=== PATIENT | female | born 1935 | race Caucasian/White ===

== ENCOUNTER 2019-06-05 12:01 | Inpatient (IN) ==
[2019-06-05] MEDS ORDERED: *HR* Heparin 5,000 UNIT/ML VIAL SQ SCH (18:00)
[2019-06-05] MEDS: Sennosides/Docusate Sodium TABLET PO SCH (19:30)
[2019-06-06] MEDS: *HR* OxyCODONE Immed Rel 5 MG TABLET PO PRN ×2 (01:34→10:27)
[2019-06-06 05:31] LABS: Basophils % 0.6 %; Eosinophils # 0.4 K/mcL (0.0-0.6); Eosinophils % 8.7 %; Hemoglobin 7.8 g/dL (11.5-15.4); Immature Granulocytes % 0.2 % (0-4); Lymphocytes # 1.9 K/mcL (0.6-4.6); Lymphocytes % 39.2 %; Mean Corpuscular HGB Conc 32.5 g/dL (31.6-35.5); Mean Corpuscular Hemoglobin 33.8 pg (28.0-33.3); Mean Corpuscular Volume 103.9 fL (83.0-100.0); Mean Platelet Volume 10.4 fL (9.4-12.4); Monocytes # 0.6 K/mcL (0.0-1.3); Neutrophils # 1.9 K/mcL (1.6-8.9); Platelet Count 108 K/mcL (140-400); Red Blood Count 2.31 M/mcL (3.82-4.97); Red Cell Distribution Width 14.6 % (11.5-14.5); Segmented Neutrophils % 39.3 %; White Blood Count 4.8 K/mcL (4.3-11.1)
[2019-06-06 05:48] LABS: Alanine Aminotransferase 8 Units/L (7-52); Albumin 2.7 g/dL (3.5-5.7); Albumin/Globulin Ratio 1.5 (1.1-2.2); Alkaline Phosphatase 75 Units/L (34-104); Aspartate Amino Transferase 12 Units/L (13-39); BUN/Creatinine Ratio 34 (6-26); Bilirubin,Total 0.3 mg/dL (0.3-1.0); Blood Urea Nitrogen 34 mg/dL (8-23); Calcium 8.5 mg/dL (8.6-10.3); Carbon Dioxide 24 mEq/L (23-29); Chloride 110 mEq/L (98-107); Globulin 1.8 g/dL (2.4-3.5); Glucose 98 mg/dL (70-105); Osmolality,Calculated 296 (280-300); Potassium 4.7 mEq/L (3.5-5.1); Sodium 139 mEq/L (136-145); Total Protein 4.5 g/dL (6.4-8.9); eGFR For African Americans > 60 (> 60); eGFR For Non-African Americans 53 (> 60)
[2019-06-06] MEDS: *HR* Heparin 5,000 UNIT/ML VIAL SQ SCH ×2 (06:25→17:13)
[2019-06-06] MEDS: Sennosides/Docusate Sodium TABLET PO SCH ×2 (08:53→21:26)
[2019-06-07] MEDS: *HR* OxyCODONE Immed Rel 5 MG TABLET PO PRN ×2 (00:43→21:55)
[2019-06-07] MEDS: *HR* Heparin 5,000 UNIT/ML VIAL SQ SCH ×2 (04:56→17:32)
[2019-06-07 05:23] LABS: Hematocrit 23.4 % (35.3-44.9); Hemoglobin 7.6 g/dL (11.5-15.4); Mean Corpuscular HGB Conc 32.5 g/dL (31.6-35.5); Mean Corpuscular Hemoglobin 33.6 pg (28.0-33.3); Mean Corpuscular Volume 103.5 fL (83.0-100.0); Platelet Count 125 K/mcL (140-400); Red Blood Count 2.26 M/mcL (3.82-4.97); Red Cell Distribution Width 14.5 % (11.5-14.5); White Blood Count 5.7 K/mcL (4.3-11.1)
[2019-06-07 08:16] LABS: % Iron Saturation 6 % (15-50); Iron 17 mcg/dL (50-170); Transferrin 191 mg/dL (203-362)
[2019-06-07] MEDS: Aspirin Enteric Coated 81 MG Tablet PO SCH (08:28)
[2019-06-07] MEDS: Sennosides/Docusate Sodium TABLET PO SCH (08:28)
[2019-06-07] MEDS ORDERED: Ergocalciferol (VIT D2) 50,000 UNIT (1.25MG) CAP PO SCH ×2 (09:00→12:15)
[2019-06-07 09:40] LABS: Prealbumin 11.4 mg/dL (17.0-34.0)
[2019-06-07] MEDS ORDERED: Sennosides/Docusate Sodium TABLET PO PRN (10:30)
[2019-06-07 22:40] LABS: Bilirubin,Urine Negative (Negative); Blood,Urine Negative (Negative); Clarity,Urine Slightly Cloudy (Clear); Glucose,Urine (UA) Normal (Normal); Ketones,Urine Negative (Negative); Leukocyte Esterase,Urine Small (Negative); Nitrite,Urine Negative (Negative); PH,Urine 6.5 pH Units (5.0-8.0); Protein,Urine Negative (Neg-Trace)
[2019-06-07 22:46] LABS: Color,Urine Yellow (Yellow)
[2019-06-07 22:47] LABS: Bacteria,Urine Few per hpf (None-Few); Squamous Epithelial Cell,Urine Few per lpf (None-Few)
[2019-06-08] MEDS: *HR* OxyCODONE Immed Rel 5 MG TABLET PO PRN ×2 (04:29→13:09)
[2019-06-08] MEDS: *HR* Heparin 5,000 UNIT/ML VIAL SQ SCH ×2 (04:31→17:17)
[2019-06-08] MEDS: Aspirin Enteric Coated 81 MG Tablet PO SCH (08:19)
[2019-06-08] MEDS: tiZANidine 4 MG TABLET PO PRN (09:46)
[2019-06-08] MEDS: Ascorbic Acid 500 MG TABLET PO SCH (17:16)
[2019-06-09 04:58] LABS: Hematocrit 24.4 % (35.3-44.9); Hemoglobin 7.9 g/dL (11.5-15.4); Mean Corpuscular HGB Conc 32.4 g/dL (31.6-35.5); Mean Corpuscular Hemoglobin 33.5 pg (28.0-33.3); Mean Corpuscular Volume 103.4 fL (83.0-100.0); Mean Platelet Volume 10.7 fL (9.4-12.4); Platelet Count 140 K/mcL (140-400); Red Blood Count 2.36 M/mcL (3.82-4.97); White Blood Count 4.3 K/mcL (4.3-11.1)
[2019-06-09 05:15] LABS: Calcium 8.8 mg/dL (8.6-10.3); Potassium 4.9 mEq/L (3.5-5.1)
[2019-06-09] MEDS: *HR* Heparin 5,000 UNIT/ML VIAL SQ SCH ×2 (06:23→17:25)
[2019-06-09] MEDS: Cyanocobalamin (B-12) 1,000 MCG TABLET PO SCH (09:20)
[2019-06-09] MEDS: Ascorbic Acid 500 MG TABLET PO SCH ×2 (09:20→17:25)
[2019-06-09] MEDS: Aspirin Enteric Coated 81 MG Tablet PO SCH (09:20)
[2019-06-09] MEDS: *HR* OxyCODONE Immed Rel 5 MG TABLET PO PRN (14:07)
[2019-06-10] MEDS: *HR* Heparin 5,000 UNIT/ML VIAL SQ SCH ×2 (05:41→17:12)
[2019-06-10] MEDS: *HR* OxyCODONE Immed Rel 5 MG TABLET PO PRN ×2 (08:29→22:08)
[2019-06-10] MEDS: Ascorbic Acid 500 MG TABLET PO SCH ×2 (08:29→17:14)
[2019-06-10] MEDS: Aspirin Enteric Coated 81 MG Tablet PO SCH (08:30)
[2019-06-10] MEDS: Cyanocobalamin (B-12) 1,000 MCG TABLET PO SCH (08:30)
[2019-06-11] MEDS: *HR* Heparin 5,000 UNIT/ML VIAL SQ SCH ×2 (06:40→17:18)
[2019-06-11] MEDS: Aspirin Enteric Coated 81 MG Tablet PO SCH (08:39)
[2019-06-11] MEDS: Ascorbic Acid 500 MG TABLET PO SCH ×2 (08:39→17:18)
[2019-06-11] MEDS: Cyanocobalamin (B-12) 1,000 MCG TABLET PO SCH (08:39)
[2019-06-11] MEDS: tiZANidine 4 MG TABLET PO PRN (11:53)
[2019-06-12] MEDS: tiZANidine 4 MG TABLET PO PRN ×2 (00:33→13:15)
[2019-06-12 05:05] LABS: Basophils % 0.6 %; Eosinophils # 0.3 K/mcL (0.0-0.6); Eosinophils % 5.2 %; Hematocrit 23.9 % (35.3-44.9); Hemoglobin 7.9 g/dL (11.5-15.4); Immature Granulocytes % 0.2 % (0-4); Lymphocytes % 37.6 %; Mean Corpuscular HGB Conc 33.1 g/dL (31.6-35.5); Mean Corpuscular Hemoglobin 34.5 pg (28.0-33.3); Mean Corpuscular Volume 104.4 fL (83.0-100.0); Monocytes # 0.6 K/mcL (0.0-1.3); Monocytes % 11.9 %; Neutrophils # 2.4 K/mcL (1.6-8.9); Platelet Count 147 K/mcL (140-400); Red Blood Count 2.29 M/mcL (3.82-4.97); Red Cell Distribution Width 15.3 % (11.5-14.5); Segmented Neutrophils % 44.5 %; White Blood Count 5.4 K/mcL (4.3-11.1)
[2019-06-12] MEDS: *HR* Heparin 5,000 UNIT/ML VIAL SQ SCH ×2 (06:17→16:55)
[2019-06-12] MEDS: Cyanocobalamin (B-12) 1,000 MCG TABLET PO SCH (08:08)
[2019-06-12] MEDS: Aspirin Enteric Coated 81 MG Tablet PO SCH (08:08)
[2019-06-12] MEDS: Ascorbic Acid 500 MG TABLET PO SCH ×2 (08:08→16:57)
[2019-06-12] MEDS: predniSONE 10 MG TABLET PO SCH (16:55)
[2019-06-12 18:46] VITALS: BP 124/75
[2019-06-12] MEDS: CHLORAMBUCIL 2 MG PO SCH (21:49)
[2019-06-13] MEDS: *HR* OxyCODONE Immed Rel 5 MG TABLET PO PRN ×2 (00:58→08:03)
[2019-06-13] MEDS: *HR* Heparin 5,000 UNIT/ML VIAL SQ SCH (06:20)
[2019-06-13] MEDS: Ascorbic Acid 500 MG TABLET PO SCH (08:03)
[2019-06-13] MEDS: Aspirin Enteric Coated 81 MG Tablet PO SCH (08:03)
[2019-06-13] MEDS: Cyanocobalamin (B-12) 1,000 MCG TABLET PO SCH (08:04)
[2019-06-13] MEDS: predniSONE 10 MG TABLET PO SCH (08:04)
[2019-06-13] MEDS: CHLORAMBUCIL 2 MG PO SCH (08:04)
[2019-06-15] MEDS ORDERED: Aspirin 325 MG TABLET PO SCH (09:00)
== END 2019-06-13 09:00 | disposition home health service (06) | DRG 560 ==
LOC: INPGRE 16:57
PROVIDERS: ADMIT Family Medicine; ATTEND Family Medicine